=== PATIENT | male | born 1955 | race Caucasian/White ===

== ENCOUNTER 2021-09-30 19:16 | Emergency (ER) | payer BC ==
[~2021-09-30] VITALS: Ht 182.8 cm; Wt 163.3 kg
[2021-09-30 20:03] LABS: HEMATOCRIT 31.5 % (42.0-52.0); MEAN CORPUSCULAR HGB 27.7 pg (27.0-31.0); MEAN CORPUSCULAR HGB CONC 30.5 g/dl (33.0-37.0); MEAN PLATELET VOLUME 9.6 fl (9.6-12.3); PLATELET COUNT AUTOMATED 407 10*3/uL (130-400); RED BLOOD COUNT 3.46 10*6/uL (4.50-5.90); RED CELL DISTRI WIDTH 16.5 % (0-14.5); WHITE BLOOD COUNT 14.9 10*3/uL (4.8-10.8)
[2021-09-30 20:04] LABS: MANUAL DIFF REFLEX YES
[2021-09-30 20:10] LABS: BILIRUBIN Negative (Negative); BLOOD 3+ (Negative); CLARITY Turbid (Clear); COLOR Dark Yellow (Yellow); GLUCOSE Negative (Negative); KETONE Negative (Negative); LEUKO ESTERASE 1+ (Negative); NITRITE Negative (Negative); SPECIFIC GRAVITY 1.025 (1.001-1.030)
[2021-09-30 20:21] LABS: ALKALINE PHOSPHATASE 89 U/L (45-117); BUN 39 mg/dl (7-24); CHLORIDE 105 mmol/L (98-107); POTASSIUM 3.5 mmol/L (3.5-5.1); SGOT/AST 11 IU/L (3-35); SGPT/ALT 18 U/L (12-78); SODIUM 138 mmol/L (136-145); TOTAL PROTEIN 6.4 gm/dL (6.4-8.2)
[2021-09-30 20:43] LABS: ATYPICAL LYMPHS 1 % (0-0); TOTAL CELLS COUNTED 100 #CELLS
[2021-09-30 20:45] LABS: TOXIC GRANULATION SLIGHT
[2021-09-30 20:46] LABS: PLATELET SUFFICIENCY HIGH (NORMAL)
[2021-09-30 20:47] LABS: MICROCYTOSIS SLIGHT; POLYCHROMASIA SLIGHT
[2021-09-30] MEDS ORDERED: ACETAMINOPHEN325 M2 PEG (20:47)
[2021-09-30] MEDS ORDERED: ACETAZOLAMIDE250 MG PEG (20:48)
[2021-09-30] MEDS ORDERED: AMIODARONE HYD200 MG PEG (20:49)
[2021-09-30] MEDS ORDERED: ARTIFICIAL TEAR1514 OU (20:49)
[2021-09-30] MEDS ORDERED: ASPIRIN CHEWABL81 MG PEG (20:49)
[2021-09-30] MEDS ORDERED: BISACODYL10 MG R (20:51)
[2021-09-30] MEDS ORDERED: DILTIAZEM HCL90 MG PO (20:52)
[2021-09-30] MEDS ORDERED: DEPAKENE S250 MG/5 M PEG (20:52)
[2021-09-30] MEDS ORDERED: FLEET ENEMA 13133 ML R (20:53)
[2021-09-30] MEDS ORDERED: Hydralazine Hyd25 MG PEG (20:54)
[2021-09-30] MEDS ORDERED: FUROSEMIDE40 MG PEG (20:54)
[2021-09-30] MEDS ORDERED: Ipratropium Brom3 ML INH ×3 (20:56→20:58)
[2021-09-30] MEDS ORDERED: LANSOPRAZO15 MG/5 ML PEG (20:59)
[2021-09-30] MEDS ORDERED: LEVETIRACE500 MG/5 M PEG (21:00)
[2021-09-30] MEDS ORDERED: Lovenox40 MG/0.4 SQ (21:01)
[2021-09-30] MEDS ORDERED: LOPRESSOR100 M1 PEG (21:01)
[2021-09-30] MEDS ORDERED: METOCLOPRAMIDE H5 M1 PEG (21:02)
[2021-09-30] MEDS ORDERED: PIPERACIL-TAZO4.5 G1 IV (21:03)
[2021-09-30] MEDS ORDERED: PREDNISONE10 MG PEG (21:04)
[2021-09-30] MEDS ORDERED: POTASSIUM CHLO20 ME4 PEG (21:04)
[2021-09-30] MEDS ORDERED: ROSUVASTATIN CA20 MG PEG (21:05)
[2021-10-06] MEDS ORDERED: NUTREN 1.5250 ML PEG (09:36)
[2021-10-06] MEDS ORDERED: ATROPINE SULFATE2 M2 SL (09:48)
[2021-10-06] MEDS ORDERED: LEVOFLOXACIN750 M2 PEG (09:51)
[2021-10-06] MEDS ORDERED: MILK OF MA400 MG/52 PO (09:56)
[2021-10-06] MEDS ORDERED: HYDROCODONE-AC1 EAC1 PEG (09:57)
[2021-10-06] MEDS ORDERED: PREDNISONE10 MG PEG (10:17)
[2021-10-09] MEDS ORDERED: VANCO 1 GR1 GM/250 M IV (15:49)
[2021-10-09] MEDS ORDERED: MEROPENEM-500 MG/50 IV (15:49)
[2021-10-13] MEDS ORDERED: ALDACTONE25 MG PEG (11:14)
[2021-10-13] MEDS ORDERED: FUROSEMIDE40 MG PEG (11:14)
[2021-10-13] MEDS ORDERED: CARVEDILOL12.5 MG PEG (11:14)
[2021-10-13] MEDS ORDERED: MEROPENEM-500 MG/50 IV (11:14)
[2021-10-13] MEDS ORDERED: FUROSEMIDE40 MG/4 ML IV (11:14)
[2021-10-13] MEDS ORDERED: ENTRESTO 24 MG1 EACH PO (11:14)
== END 2021-10-01 09:25 ==
LOC: ED 19:16
PROVIDERS: Internal Medicine
DX: R33.9 Retention of urine, unspecified (principal); J18.9 Pneumonia, unspecified organism; N17.9 Acute kidney failure, unspecified; E44.0 Moderate protein-calorie malnutrition; D64.9 Anemia, unspecified; Z91.041 Radiographic dye allergy status; Z79.899 Other long term (current) drug therapy; Z79.82 Long term (current) use of aspirin